=== PATIENT | male | born 1950 | race Caucasian/White ===

== ENCOUNTER 2018-07-10 06:40 | Day surgery (SDC) | payer MEDICARE, OTHER ==
[~2018-07-10] VITALS: Ht 152.4 cm; Wt 132.9 kg
[2018-07-10] MEDS ORDERED: LIDOCAINE HCL 1% 20ML VIAL (Pyxis) INJ ONE (08:05)
[2018-07-10] MEDS ORDERED: IODIXANOL 320MG/ML 100 ML BOTTLE IV ONE (08:05)
[2018-07-10] MEDS ORDERED: INSULIN REGULAR (HUMULIN R) 300UNITS/3ML SUBCUT ONE ×2 (08:15→11:15)
[2018-07-10] MEDS ORDERED: INSULIN REGULAR (HUMULIN R) UD 100 UNITS/ML SYR SUBCUT ONE (08:30)
[2018-07-10 09:01] LABS: INR 1.1; PARTIAL THROMBOPLASTIN TIME 26.6 sec (23.4-31.0); PROTHROMBIN TIME 10.7 sec (9.1-11.1)
[2018-07-10] MEDS ORDERED: MIDAZOLAM HCL 2 MG/2 ML VIAL ONE (09:12)
[2018-07-10] MEDS ORDERED: FENTANYL CITRATE/PF 50MCG/ML 2ML VIAL ONE (09:12)
[2018-07-10] MEDS ORDERED: ATROPINE SULFATE 1MG/10ML SYR IV PRN (10:00)
[2018-07-10] MEDS ORDERED: ACETAMINOPHEN 325MG TABLET PO PRN (10:00)
[2018-07-10] MEDS ORDERED: ONDANSETRON HCL 4MG/2ML INJ IV PRN (10:00)
[2018-07-10] MEDS ORDERED: ATOR80TA PO (10:06)
[2018-07-10] MEDS ORDERED: ASA5EC PO (10:06)
[2018-07-10] MEDS ORDERED: LOSA50TA20 PO (10:06)
[2018-07-10] MEDS ORDERED: OMEP20CA10 PO (10:06)
[2018-07-10] MEDS ORDERED: FERR325T6 PO (10:06)
[2018-07-10] MEDS ORDERED: AMIT25TA9 PO (10:06)
[2018-07-10] MEDS ORDERED: NITR0.4T SL (10:06)
[2018-07-10] MEDS ORDERED: INSU100I28 SQ (10:06)
[2018-07-10] MEDS ORDERED: GABA-290 PO (10:06)
[2018-07-10] MEDS ORDERED: INSULIN REGULAR (HUMULIN R) 300UNITS/3ML SUBCUT SCH (11:15)
[2018-07-10] MEDS ORDERED: NICARDIPINE 100MCG/ML 10ML VIAL (CATH LAB) IV ONE (15:37)
[2018-07-10] MEDS ORDERED: HEPARIN SODIUM 1,000 UNIT/1ML VIAL IV ONE (15:37)
[2018-07-10] MEDS ORDERED: NITROGLYCERIN 50MCG/ML 10ML VIAL (CATH LAB) IV ONE (15:37)
== END 2018-07-10 12:05 | disposition home or self-care (01) ==
LOC: CCL 06:40
PROVIDERS: ATTEND Specialist
DX: I25.10 Atherosclerotic heart disease of native coronary artery without angina pectoris (principal)
CPT/HCPCS: 36415; 82962; 85610; 85730; 93458; 99152; C1769; C1887; J1644; J1815; J2250; J3010; J3490; Q9967; G0500

== ENCOUNTER 2019-05-08 10:26 | Day surgery (SDC) | payer MEDICARE, OTHER ==
[~2019-05-08] VITALS: Ht 165.1 cm; Wt 116.1 kg
[~2019-05-08 10:26] MED LIST: AMIT25TA9 PO; ASPI325T85 PO; ATOR80TA PO; FERR325T6 PO; GABA-290 PO; INSU100I28 SQ; LOSA50TA41 PO; NITR0.4T SL; OMEP20CA5 PO
[2019-05-08] MEDS ORDERED: NITROGLYCERIN 50MCG/ML 10ML VIAL (CATH LAB) IV ONE (11:00)
[2019-05-08] MEDS ORDERED: HEPARIN SODIUM 1,000 UNIT/1ML VIAL IV ONE (11:00)
[2019-05-08] MEDS ORDERED: NICARDIPINE 100MCG/ML 10ML VIAL (CATH LAB) IV ONE (11:00)
[2019-05-08] MEDS ORDERED: LIDOCAINE HCL 1% 20ML VIAL (Pyxis) INJ ONE (11:27)
[2019-05-08] MEDS ORDERED: IODIXANOL 320MG/ML 100 ML BOTTLE IV ONE (11:27)
[2019-05-08] MEDS ORDERED: MIDAZOLAM HCL 2 MG/2 ML VIAL ONE (11:28)
[2019-05-08] MEDS ORDERED: FENTANYL CITRATE/PF 50MCG/ML 2ML VIAL ONE (11:28)
[2019-05-08] MEDS ORDERED: INSU100I22 SQ (11:54)
[2019-05-08] MEDS ORDERED: SITA1TAB6 PO (11:54)
[2019-05-08] MEDS ORDERED: ATOR20TA65 PO (11:54)
[2019-05-08] MEDS ORDERED: AMLO10TA4 PO (11:54)
[2019-05-08] MEDS ORDERED: ASPI-1160 PO (11:54)
[2019-05-08] MEDS ORDERED: EMPA25TA PO (11:54)
[2019-05-08] MEDS ORDERED: PROTAMINE SULFATE 10MG/ML VIAL 5ML IV ONE (12:26)
[2019-05-08] MEDS ORDERED: ACETAMINOPHEN 325MG TABLET PO PRN (12:45)
[2019-05-08] MEDS ORDERED: ATROPINE SULFATE 1MG/10ML SYR IV PRN (12:45)
[2019-05-08] MEDS ORDERED: ONDANSETRON HCL 4MG/2ML INJ IV PRN (12:45)
== END 2019-05-08 17:00 | disposition home or self-care (01) ==
LOC: CCL 10:26
PROVIDERS: ATTEND Specialist
DX: R07.9 Chest pain, unspecified (principal); R93.1 Abnormal findings on diagnostic imaging of heart and coronary circulation; I25.10 Atherosclerotic heart disease of native coronary artery without angina pectoris; E11.9 Type 2 diabetes mellitus without complications; I11.9 Hypertensive heart disease without heart failure; E78.5 Hyperlipidemia, unspecified; I87.2 Venous insufficiency (chronic) (peripheral); E66.9 Obesity, unspecified; M17.11 Unilateral primary osteoarthritis, right knee; Z79.82 Long term (current) use of aspirin; Z79.899 Other long term (current) drug therapy; Z79.4 Long term (current) use of insulin; Z82.49 Family history of ischemic heart disease and other diseases of the circulatory system; Z83.3 Family history of diabetes mellitus; Z68.41 Body mass index [BMI] 40.0-44.9, adult
CPT/HCPCS: 82962; 85347; 93458; 93571; 99152; 99153; C1769; C1887; C1893; J1644; J2250; J2720; J3010; J3490; Q9967